=== PATIENT | female | born 1975 | race Caucasian/White ===

== ENCOUNTER 2018-05-15 06:20 | Day surgery (SDC) | payer BC ==
[~2018-05-15] VITALS: Ht 162.6 cm; Wt 119.7 kg
[2018-05-15] MEDS ORDERED: CEFAZOLIN SOD 1 GM/ ISO 50 ML PREMIX IV ONE (07:15)
[2018-05-15] MEDS ORDERED: CEFAZOLIN 1 GM IVPB PREMIX 50 ML IV ONE ×2 (07:18→14:15)
[2018-05-15] MEDS ORDERED: DEXTROSE 50% JECT 50 ML DISP.SYRIN IVP ONE (07:50)
[2018-05-15] MEDS ORDERED: KETOROLAC TROMETHAMINE 30 MG VIAL IVP ONE ×2 (07:50→14:00)
[2018-05-15] MEDS ORDERED: ONDANSETRON HCL 4 MG/2 ML VIAL IVP ONE (07:50)
[2018-05-15] MEDS ORDERED: NS 1000 ML IV.SOLN IV ONE (07:50)
[2018-05-15] MEDS ORDERED: LR 1,000 ML IV.SOLN IV ONE (07:50)
[2018-05-15] MEDS ORDERED: NS IRRIG SOLN 1000 ML IR ONE (07:50)
[2018-05-15] MEDS ORDERED: fentaNYL CITRATE/PF 100 MCG/2 ML AMP IVP ONE (07:50)
[2018-05-15] MEDS ORDERED: DEXAMETHASONE SOD PHOSPHATE 4 MG/ML VIAL IVP ONE (07:50)
[2018-05-15] MEDS ORDERED: ROPIVACAINE 0.2% (NAROPIN) PF SOLUTION 100 ML BOTTLE EP ONE (07:50)
[2018-05-15] MEDS ORDERED: MIDAZOLAM HCL 5 MG/5 ML VIAL IVP ONE (07:50)
[2018-05-15] MEDS ORDERED: NEOSTIGMINE METHYLSULFATE 1 MG/ML, 10 ML VIAL IVP ONE (07:50)
[2018-05-15] MEDS ORDERED: ROPIVACAINE HCL/PF 5 MG/ML 0.5% 30 ML VIAL INJ ONE (07:50)
[2018-05-15] MEDS ORDERED: ROCURONIUM BROMIDE 10 MG/ML (ZEMURON) IV ONE (07:50)
[2018-05-15] MEDS ORDERED: GLYCOPYRROLATE 0.2 MG/ML VIAL IJ ONE (07:50)
[2018-05-15] MEDS ORDERED: PROPOFOL 200MG/ 20ML VIAL (DIPRIVAN) IV ONE (07:50)
[2018-05-15] MEDS ORDERED: SEVOFLURANE 15 MIN GAS INH ONE (07:50)
[2018-05-15] MEDS ORDERED: ONDANSETRON HCL 4 MG/2 ML VIAL IVP PRN ×2 (09:30→10:15)
[2018-05-15] MEDS ORDERED: fentaNYL CITRATE/PF 100 MCG/2 ML AMP IVP PRN ×2 (09:30)
[2018-05-15] MEDS ORDERED: HYDROcodone/ACETAMIN 5-325 MG TAB (NORCO/ VICODIN) PO PRN ×2 (10:15→12:30)
[2018-05-15] MEDS ORDERED: fentaNYL CITRATE/PF 100 MCG/2 ML AMP ONE (11:33)
[2018-05-15] MEDS ORDERED: OXYCODONE/ACETAMINOPHEN 5-325 TABLET PO PRN (12:30)
[2018-05-15] MEDS ORDERED: ROPIVACAINE 40 MG/20 ML AMP EP ONE (12:30)
[2018-05-15] MEDS ORDERED: HYDROcodone/ACETAMIN 5-325 MG TAB (NORCO/ VICODIN) ONE (13:26)
[2018-05-15] MEDS ORDERED: KETOROLAC TROMETHAMINE 30 MG VIAL ONE (14:42)
--- NOTE | 2018-05-15 16:54 | NUR ---
ADMISSION NOTE Received patienT VIA gurney from outpatient. Patient admitted with diagnosis of s/p laparocopic hysterectomy . Patient is awake, alert, oriented X 4. Patient oriented to hospital room, call light, toileting, pain management and safety-teach back done. Patient informed that [facility] will be her nurse and that their room number is [id number]. Personal belongings checked and Belongings List documented. Call light within reach.
[2018-05-15 16:58] VITALS: BP_SYST 130
--- NOTE | 2018-05-15 17:10 | NUR ---
Rounds Assisted the patient to the restroom and back into bed. Patient tolerated well.
[2018-05-15] MEDS ORDERED: FERR-69 PO (17:13)
[2018-05-15] MEDS ORDERED: BIOT1CAP3 PO (17:13)
[2018-05-15] MEDS: SIMETHICONE 80 MG TAB.CHEW PO SCH ×2 (18:25→21:23)
[2018-05-15] MEDS: IBUPROFEN 600 MG TABLET PO SCH ×3 (18:26→19:26)
--- NOTE | 2018-05-15 19:00 | NUR ---
Closing Note Patient is currently eating dinner in bed. IV is on the LAC 20g saline locked. Abdominal dressing has scant amount of drainage. On Q pump is running at 6ml/hr. Call light is within reach and bed is in low position. Will endorse care to the oncoming nurse.
--- NOTE | 2018-05-15 19:30 | NUR ---
CHANGE OF SHIFT: pt. awake, alert and oriented when checked, family members at bedside. S/P laparoscopic hysterectomy, with steri strips on abdomen intact @ 5 areas ,with On Q pump on lower abdomen/pelvic area intact. IV lock on left hand. pt. been going to restroom frequently. call light within reach.
[2018-05-15 20:00] VITALS: BP_SYST 113
--- NOTE | 2018-05-15 20:45 | NUR ---
NOTES: called Dr. Ortiz and informed about pt. c/o frequent voiding. MD order for bladder scan, if more than 300 ,insert daly and send specimen for Urinalysis and culture, informed pt.
[2018-05-15] MEDS: OXYCODONE/ACETAMINOPHEN 5-325 TABLET PO PRN (21:25)
--- NOTE | 2018-05-15 21:30 | NUR ---
NOTES: pt. medicated for pain and gas, encouraged deep breathing exercise and ambulation.
--- NOTE | 2018-05-15 22:00 | NUR ---
NOTES: bladder scan done and only @ 30 ml scanned, pt. still going restroom but less frequent, still need urine , container given.
[2018-05-16] VITALS: BP_SYST 129
--- NOTE | 2018-05-16 00:30 | NUR ---
NOTES: pt. checked and sleeping.
--- NOTE | 2018-05-16 03:00 | NUR ---
NOTES: continue to monitor, condition unchanged.
[2018-05-16] MEDS: OXYCODONE/ACETAMINOPHEN 5-325 TABLET PO PRN (05:09)
--- NOTE | 2018-05-16 05:30 | NUR ---
NOTES; awakened, ambulated to the restroom, noted urine gets cloudy and clear in between. medicated for c/o post op pain.
--- NOTE | 2018-05-16 06:30 | NUR ---
NOTES; still medicated with Motrin po. N Q pump intact and steri strips. pt. ambulating and passing gas.
[2018-05-16] MEDS: IBUPROFEN 600 MG TABLET PO SCH ×3 (06:57→17:33)
[2018-05-16 07:20] LABS: BILIRUBIN,URINE NEGATIVE (NEGATIVE); BLOOD, URINE 3+ (NEGATIVE); CLARITY/URINE CLOUDY (CLEAR); COLOR,URINE YELLOW (YELLOW); GLUCOSE,URINE NEGATIVE (NEGATIVE); KETONES,URINE NEGATIVE (NEGATIVE); LEUKOCYTE ESTERASE ,URINE NEGATIVE (NEGATIVE); NITRITE, URINE NEGATIVE (NEGATIVE); PROTEIN URINE 1+ (NEGATIVE); UROBILINOGEN,URINE 0.2 (0.2-1.0)
--- NOTE | 2018-05-16 07:35 | NUR ---
endorsed to incoming shift with nurse Loredo. for further assistance.
[2018-05-16 07:37] LABS: BACTERIA,URINE FEW /HPF (None Seen); MUCUS,URINE None Seen /LPF (None Seen); RBC,URINE 0-3 /HPF (0-3); WBC,URINE NONE SEEN /HPF (0-3)
[2018-05-16 08:00] VITALS: BP_SYST 105
--- NOTE | 2018-05-16 08:00 | NUR ---
Note Pt sitting up in bed eating her breakfast. Pt severely allergy to pork and pork products. No SOB/resp distress or severe abdominal pain/discomfort noted at this time. IV in left hand intact and patent at this time. Pt's 5 abdominal lap sites intact and no bleeding/redness or drainage noted at this time. Call light within reach.
[2018-05-16] MEDS: SIMETHICONE 80 MG TAB.CHEW PO SCH ×3 (09:18→17:32)
--- NOTE | 2018-05-16 10:28 | NUR ---
Nutrition Update Anjum Scale 18 noted. Pt admitted for excessive and frequent menstruation. Diet: regular BMI: 45.3 kg/m2 RD to follow per nutrition care standards.
--- NOTE | 2018-05-16 11:00 | NUR ---
Note Pt ambulating in her room and to restroom with steady gait. No needs noted. Pt wanted the room dark and room door shut so she could relax and take a nap. Call light within reach.
[2018-05-16 12:00] VITALS: BP_SYST 132
--- NOTE | 2018-05-16 13:30 | NUR ---
Note Pt's son visiting in room. Pt has been walking up and down in her room to help pass flatus. Abdomen is sift and tender. Pt able to pass a little flatus and no needs noted at this time. Call light within reach.
--- NOTE | 2018-05-16 13:55 | NUR ---
Note Pt ambulating in the hallway with her son by her side. No N/V noted. Pain tolerable at this time. Pt has her Q-pump on controlling pain at this time. No needs noted.
[2018-05-16 16:00] VITALS: BP_SYST 135
--- NOTE | 2018-05-16 16:10 | NUR ---
Note Spoke to Dr Ortiz and received discharge home order. Pt was notified. Pt requests to go home around 1800. Pt also had her Q-pump dc'd per Dr Ortiz order - pt's request. Pt resting in bed with in BS chair. No needs noted. Call light within reach.
[2018-05-16 16:58] VITALS: BP_SYST 107
--- NOTE | 2018-05-16 18:20 | NUR ---
Note Pt was given discharge instructions. Questions/concerns were answered. No SOB/resp distress or severe abdominal pain/discomfort noted at this time. Pt's IV was dc'd in left hand - site benign - no swelling/redness/drainage noted at this time. Pt dressed instreet clothes and all belongings packed. Pt checked side table and drawers for belongings. Pt's 5 abdominal lap sites are intact and dry all shift. Pt was checked on q1' and PRN all shift for needs and care. Pt sitting up in bed and eating her dinner. Pt's at bedside at this time. Call light within reach. No needs noted. Pt stable.
--- NOTE | 2018-05-16 19:00 | NUR ---
Note Pt off the floor via wheelchair to private car with all her belongings and discharge paperwork. Pt stable, pt accompanied off the floor by her by her side.
== END 2018-05-16 18:59 | disposition home or self-care (01) ==
LOC: SDS 06:20 → SMU 06:20 → SDS 05-16 18:59
PROVIDERS: ATTEND Specialist
DX: N80.0 Endometriosis of uterus (principal); D64.9 Anemia, unspecified; Z68.41 Body mass index [BMI] 40.0-44.9, adult; Z79.899 Other long term (current) drug therapy; Z90.49 Acquired absence of other specified parts of digestive tract; Z98.890 Other specified postprocedural states; Z88.0 Allergy status to penicillin; Z88.8 Allergy status to other drugs, medicaments and biological substances; E66.01 Morbid (severe) obesity due to excess calories
CPT/HCPCS: 58554; 81000; 82962; 87086; 88307; C1727; J0690; J1100; J1885; J2250; J2405; J2704; J2710; J2795 ×2; J3010; J3490; J7030; J7120; E0190